=== PATIENT | female | born 1960 | race Caucasian/White ===

== ENCOUNTER 2018-04-10 14:06 | Observation (INO) ==
[2018-04-10] MEDS ORDERED: Sod Chloride 0.9% Inj 1,000 ML IV.SIG ONE (14:34)
--- NOTE | 2018-04-10 14:45 | ED ---
HPI General Chief Complaint: Chest Pain Stated Complaint: chest pain Time Seen by Provider: 04/10/18 14:19 Source: patient Mode of arrival: ambulatory Limitations: no limitations History of Present Illness HPI narrative: Patient is 57-year-old female with history of hyperlipidemia and breast cancer currently undergoing radiation treatment with Dr. Mccartney, presents the emergency room with complaints of chest pain. Patient reports that for the past 4 days, she has been having increased heart rate and palpitations. Patient reports that nothing seems to make the palpitations better or worse. Reports that the chest pain really began yesterday but was exacerbated by her radiation treatment. Patient reports that she feels a "pressure sensation to her left chest with associated nausea with no vomiting. She does have an appointment with Dr. Luu on but she called the [facility] Heart office and was told to go directly to the ER for re- evaluation. Patient denies any shortness of breath or symptoms. Chest pain is not pleuritic in nature. Complete Quality Measures for STEMI Alert Patients Related Data Allergies Allergy/AdvReac Type Severity Reaction Status Date / Time No Known Allergies Allergy Unverified 04/10/18 14:33 Review of Systems ROS: all other systems reviewed are negative [facility] Medical History Medical History Breast cancer (Acute) Hyperlipidemia (Acute) Left breast mass (Acute) Social History Social History Substance History: No History of Abuse Smoking Status: Unknown if ever smoked How Often Do You Have a Drink Containing Alcohol: Monthly or less Recent Travel in [facility] within the Last 8 Weeks: No Recent Out of Country Travel within the Last 8 Weeks: No Exam Narrative Exam Narrative: GENERAL: mild distress SKIN: Focused skin assessment warm/dry. HEAD: Atraumatic. Normocephalic. EYES: Pupils equal and round. No scleral icterus. No injection or drainage. ENT: No nasal bleeding or discharge. Mucous membranes pink and moist. NECK: Trachea midline. No JVD. CARDIOVASCULAR: Regular rate and rhythm. No murmur appreciated. RESPIRATORY: No accessory muscle use. Clear to auscultation. Breath sounds equal bilaterally. GASTROINTESTINAL: Abdomen soft, non-tender, nondistended. Hepatic and splenic margins not palpable. MUSCULOSKELETAL: No obvious deformities. No clubbing. No cyanosis. No edema. NEUROLOGICAL: Awake and alert. No obvious cranial nerve deficits. Motor grossly within normal limits. Normal speech. PSYCHIATRIC: Appropriate mood and affect; insight and judgment normal. Course Initial Documented Vital Signs Temperature 98.3 F 04/10/18 14:08 Pulse Rate 100 H 04/10/18 14:08 Respiratory Rate 18 04/10/18 14:08 Blood Pressure 126/59 L 04/10/18 14:08 Pulse Oximetry 97 04/10/18 14:08 Last Documented Vital Signs Temperature 98.3 F 04/10/18 14:08 Pulse Rate 86 04/10/18 16:12 Respiratory Rate 18 04/10/18 16:12 Blood Pressure 146/74 H 04/10/18 16:12 Pulse Oximetry 98 04/10/18 16:12 Medical Decision Making MDM Narrative Medical decision making narrative: During the course of the patients emergency department visit, the patients history, examination, and differential diagnosis were reviewed with the patient. The patient was placed on a child monitor with oximetry and frequent blood pressure monitoring. The patient had an IV access obtained and blood work sent for analysis. The patient was initially provided with aspirin The patients laboratory studies were reviewed, CT reviewed - incidental findings were reviewed with patient and a copy of her study was given to her as she will need to follow up on the lung nodules. Plan to admit to the chest pain unit over night for obs Medical Screen Exam Complete: Yes Emergency Medical Condition: Yes Differential Diagnosis Differential Diagnosis: ACS, arrhythmia, abnormal TSH, PE, electrolyte abnormality Medical Records Medical records reviewed: Yes I reviewed the patient's medical records. Lab Data Result diagrams: 04/10/18 14:35 04/10/18 14:35 Lab Results 04/10/18 04/10/18 04/10/18 Range/Units 14:35 14:35 14:35 WBC 5.2 (4.0-11.0) th/mm3 RBC 4.48 (4.00-5.30) mil/mm3 Hgb 13.4 (11.6-15.3) gm/dL Hct 40.9 (35.0-46.0) % MCV 91.3 (80.0-100.0) fL MCH 29.9 (27.0-34.0) pg MCHC 32.7 (32.0-36.0) % RDW 13.9 (11.6-17.2) % Plt Count 275 (150-450) th/mm3 MPV 7.9 (7.0-11.0) fL Neut % (Auto) 66.3 (16.0-70.0) % Lymph % (Auto) 23.5 (9.0-44.0) % [place] % (Auto) 8.4 H (0.0-8.0) % Eos % (Auto) 1.2 (0.0-4.0) % Baso % (Auto) 0.6 (0.0-2.0) % Neut # (Auto) 3.4 (1.8-7.7) th/mm3 Lymph # (Auto) 1.2 (1.0-4.8) th/mm3 [place] # (Auto) 0.4 (0.0-0.9) th/mm3 Eos # (Auto) 0.1 (0.0-0.4) th/mm3 Baso # (Auto) 0.0 (0.0-0.2) th/mm3 WBC Differential . Differential Comment Auto diff final PT 9.9 (9.8-11.6) sec INR 1.0 Ratio APTT 25.3 (24.3-30.1) sec Sodium 143 (136-145) meq/L Potassium 4.2 (3.5-5.1) meq/L Chloride 109 H (98-107) meq/L Carbon Dioxide 26.9 (21.0-32.0) meq/L Anion Gap 7 (5-15) meq/L BUN 15 (7-18) mg/dL Creatinine 0.86 (0.50-1.00) mg/dL Estimated GFR 68 L (>89) mL/min Random Glucose 98 (74-106) mg/dL Calcium 9.1 (8.5-10.1) mg/dL Magnesium 2.6 H (1.5-2.5) mg/dL Total Bilirubin 0.3 (0.2-1.0) mg/dL AST 37 (15-37) U/L ALT 33 (10-53) U/L Alkaline Phosphatase 99 (45-117) U/L Total Creatine Kinase 338 H (26-192) U/L CK-MB (CK-2) 3.6 (0.5-3.6) ng/mL CK-MB (CK-2) % 1.1 (0.0-4.0) % Troponin I Less than 0.02 L (0.02-0.05) ng/mL B-Natriuretic Peptide (0-100) pg/mL Total Protein 7.1 (6.4-8.2) g/dL Albumin 3.9 (3.4-5.0) g/dL Lipase 156 (73-393) U/L TSH (0.358-3.740) uIU/mL 04/10/18 04/10/18 Range/Units 14:35 14:35 WBC (4.0-11.0) th/mm3 RBC (4.00-5.30) mil/mm3 Hgb (11.6-15.3) gm/dL Hct (35.0-46.0) % MCV (80.0-100.0) fL MCH (27.0-34.0) pg MCHC (32.0-36.0) % RDW (11.6-17.2) % Plt Count (150-450) th/mm3 MPV (7.0-11.0) fL Neut % (Auto) (16.0-70.0) % Lymph % (Auto) (9.0-44.0) % [place] % (Auto) (0.0-8.0) % Eos % (Auto) (0.0-4.0) % Baso % (Auto) (0.0-2.0) % Neut # (Auto) (1.8-7.7) th/mm3 Lymph # (Auto) (1.0-4.8) th/mm3 [place] # (Auto) (0.0-0.9) th/mm3 Eos # (Auto) (0.0-0.4) th/mm3 Baso # (Auto) (0.0-0.2) th/mm3 WBC Differential Differential Comment PT (9.8-11.6) sec INR Ratio APTT (24.3-30.1) sec Sodium (136-145) meq/L Potassium (3.5-5.1) meq/L Chloride (98-107) meq/L Carbon Dioxide (21.0-32.0) meq/L Anion Gap (5-15) meq/L BUN (7-18) mg/dL Creatinine (0.50-1.00) mg/dL Estimated GFR (>89) mL/min Random Glucose (74-106) mg/dL Calcium (8.5-10.1) mg/dL Magnesium (1.5-2.5) mg/dL Total Bilirubin (0.2-1.0) mg/dL AST (15-37) U/L ALT (10-53) U/L Alkaline Phosphatase (45-117) U/L Total Creatine Kinase (26-192) U/L CK-MB (CK-2) (0.5-3.6) ng/mL CK-MB (CK-2) % (0.0-4.0) % Troponin I (0.02-0.05) ng/mL B-Natriuretic Peptide 8 (0-100) pg/mL Total Protein (6.4-8.2) g/dL Albumin (3.4-5.0) g/dL Lipase (73-393) U/L TSH 1.100 (0.358-3.740) uIU/mL Imaging Data Radiologist's impression: Chest CTA 04/10/18 14:34 CONCLUSION: 1. No CT evidence for pulmonary artery embolism as questioned. 2. 3 separate nodules in the right lower lobe ranging from 4 to 5 mm in size. There are additional densely calcified granulomas in the right lung with calcified right hilar nodes consistent with prior granulomatous disease. Sub-6 mm nodules do not require routine follow-up based on [address] examination may be performed in 6-12 months given patient's history of breast carcinoma. Chest X-Ray 04/10/18 14:34 CONCLUSION: Negative examination. ECG Data EKG Prior to Arrival: No Attestation: I personally reviewed and interpreted this ECG as follows: Interpretation: EKG at 1428: NSR at 88bpm, qt/qtc: 351/397, no acute st or t wave changes Discharge Plan Discharge Disposition Patient Disposition: 30 Still Patient Discharge Condition Condition: Stable Discharge Details Diagnosis: Chest pain, Incidental pulmonary nodule, > 3mm and < 8mm Physicians Team ED Provider: Brigid Valdivia Primary Care Provider: Fiorella Bae Discharge Instructions Patient Printed Instructions: Chest Pain (ED) Status ED Status: With Doctor
--- NOTE | 2018-04-10 15:05 | XR ---
EXAM DATE: 04/10/2018 2:48 PM EDT AGE/SEX: 57 years / Female INDICATIONS: Chest pain today. CLINICAL DATA: This is the patient's initial encounter. Patient reports that signs and symptoms have been present for 1 day and indicates a pain score of 5/10. MEDICAL/SURGICAL HISTORY: Carcinoma, breast. . Lumpectomy. COMPARISON: POI, XR CHEST PA AND LAT, 05/08/2015. . FINDINGS: A single AP view of the chest demonstrates the lungs to be symmetrically aerated without evidence of mass, infiltrate or effusion. The cardiomediastinal contours are unremarkable. Osseous structures a re intact. CONCLUSION: Negative examination. Electronically signed by: Juan Carlos Jaimes MD 04/10/2018 3:04 PM EDT
[2018-04-10 15:20] LABS: Baso % (Auto) 0.6 % (0.0-2.0); Eos # (Auto) 0.1 th/mm3 (0.0-0.4); Eos % (Auto) 1.2 % (0.0-4.0); Hematocrit 40.9 % (35.0-46.0); Hemoglobin 13.4 gm/dL (11.6-15.3); Lymph # (Auto) 1.2 th/mm3 (1.0-4.8); Lymph % (Auto) 23.5 % (9.0-44.0); Mean Corpuscular HGB Conc 32.7 % (32.0-36.0); Mean Corpuscular Hemoglobin 29.9 pg (27.0-34.0); Mean Corpuscular Volume 91.3 fL (80.0-100.0); Mean Platelet Volume 7.9 fL (7.0-11.0); Mono # (Auto) 0.4 th/mm3 (0.0-0.9); Mono % (Auto) 8.4 % (0.0-8.0); Neut # (Auto) 3.4 th/mm3 (1.8-7.7); Neut % (Auto) 66.3 % (16.0-70.0); Platelet Count 275 th/mm3 (150-450); Red Blood Count 4.48 mil/mm3 (4.00-5.30); Red Cell Distribution Width 13.9 % (11.6-17.2); White Blood Count 5.2 th/mm3 (4.0-11.0)
[2018-04-10 15:28] LABS: Activated Partial Thrombo Time 25.3 sec (24.3-30.1); Prothrombin Time 9.9 sec (9.8-11.6)
[2018-04-10 15:53] LABS: Alanine Aminotransferase 33 U/L (10-53); Albumin 3.9 g/dL (3.4-5.0); Alkaline Phosphatase 99 U/L (45-117); Anion Gap 7 meq/L (5-15); Aspartate Aminotransferase 37 U/L (15-37); Blood Urea Nitrogen 15 mg/dL (7-18); Calcium 9.1 mg/dL (8.5-10.1); Carbon Dioxide 26.9 meq/L (21.0-32.0); Chloride 109 meq/L (98-107); Creatine Kinase 338 U/L (26-192); Glomerular Filtration Rate 68 mL/min (>89); Glucose,Random 98 mg/dL (74-106); Lipase 156 U/L (73-393); Magnesium 2.6 mg/dL (1.5-2.5); Sodium 143 meq/L (136-145); Total Protein 7.1 g/dL (6.4-8.2)
[2018-04-10 15:54] LABS: Potassium 4.2 meq/L (3.5-5.1)
[2018-04-10 16:07] LABS: CKMB Percent 1.1 % (0.0-4.0); Creatine Kinase MB 3.6 ng/mL (0.5-3.6)
--- NOTE | 2018-04-10 16:49 | CT ---
EXAM DATE: 04/10/2018 4:37 PM EDT AGE/SEX: 57 years / Female INDICATIONS: Left side chest pain starting today CLINICAL DATA: This is the patient's initial encounter. Patient reports that signs and symptoms have been present for 1 day and indicates a pain score of 5/10. MEDICAL/SURGICAL HISTORY: Carcinoma, breast. None. RADIATION DOSE: 9.97 CTDI (mGy) COMPARISON: C, CHEST 1V SINGLE AP, 04/10/2018. . TECHNIQUE: Volumetric scanning was performed using a multi-row detector CT scanner during bolus infu manoj of 75 ml Omnipaque 350 (iohexol) nonionic water-soluble contrast as a single exam dose. The edith a was post processed with a variety of visualization algorithms including full volume maximum intensi ty projection and sliding thin slab reformation. Using automated exposure control and adjustment of the mA and/or kV according to patient size, radiation dose was kept as low as reasonably achievable t o obtain optimal diagnostic quality images. DICOM format image data is available electronically for review and comparison. FINDINGS: Pulmonary Arteries: No filling defects are seen in the pulmonary arteries through the segmental vess els. The main pulmonary artery is normal in diameter. Lung: Densely calcified granuloma in the right upper lobe. 5 mm nodule in the superior segment of th e right lower lobe. There are also 2 adjacent subpleural 4 mm nodules slightly more inferiorly in the right lower lobe. Minimal ground glass opacities in the inferior lingula and lung bases likely refle cting volume loss. Pleura: No effusion, significant pleural thickening or pneumothorax. Mediastinum: Heart is unremarkable without pericardial effusion. Densely calcified right hilar nodes .. Osseous Structures: No abnormal focal lytic or blastic bony lesions. Other: Visulaized upper abdomen is unremarkable. CONCLUSION: 1. No CT evidence for pulmonary artery embolism as questioned. 2. 3 separate nodules in the right lower lobe ranging from 4 to 5 mm in size. There are additional d ensely calcified granulomas in the right lung with calcified right hilar nodes consistent with prior granulomatous disease. Sub-6 mm nodules do not require routine follow-up based on [address] Optional CT examination may be performed in 6-12 months given patient's history of breast carc inoma. Electronically signed by: Isra Kim MD 04/10/2018 4:48 PM EDT
[2018-04-10 18:54] LABS: Creatine Kinase 129 U/L (26-192)
[2018-04-10 19:07] LABS: Creatine Kinase MB 0.7 ng/mL (0.5-3.6)
--- NOTE | 2018-04-10 21:00 | ECG ---
Date Performed: 04/10/2018 Time Performed: 14:28:41 PTAGE: 57 years EKG: Sinus rhythm NORMAL ECG NO PREVIOUS TRACING DOCTOR: Esequiel Kelley Interpretating Date/Time 04/10/2018 20:58:54
[2018-04-11 08:51] VITALS: RESP 16; O2SAT 96
--- NOTE | 2018-04-11 09:19 | P.HPCA ---
History of Present Illness Primary Care Physician: Fiorella Bae DO Chief Complaint: Chest pain and palpitations History of Present Illness: This is a 57-year-old female that has history of breast cancer status post lumpectomy in 2 weeks of radiation therapy with most recent being Monday that presents to ED with plan of chest discomfort and palpitations. Patient states her palpitations feel like as if her heart rate picks up. Is not a sudden onset but will gradual progression. It is been intermittently however for the last 4 days. She is also had chest discomfort radiates to her neck that began yesterday and was also intermittent. Pain was a 5 out of 10. Lasted about an hour. Was little nauseous but denies shortness of breath and diaphoresis. She has seen a station engineer main line in the past. States she saw Dr. Luu couple years ago really cannot recall the reasoning but states she had a stress test and a Holter monitor that was okay. She has an appointment to see Dr. Luu tomorrow to discuss her symptoms however she was advised by her oncologist yesterday to seek treatment in the ED. Non-smoker. There is family history of CAD. - Diagnosis (1) Chest pain (2) Palpitations (3) Multiple lung nodules on CT Review of Systems General: Patient denies fevers, chills, and recent travel. HEENT: Patient denies headache, sore throat, difficulty swallowing. Cardiovascular: Has sensation of heart rate increasing, states it occurred while in ED and she looked at the monitor and heart rate was in the high 80s. Has the chest discomfort as mentioned above. Denies sensation of heart beating irregularly. No syncope. Denies diaphoresis. Respiratory: Denies shortness of breath or inspirational chest discomfort. Denies coughing wheezing or hemoptysis. GI: She was nauseous yesterday. Patient denies vomiting, diarrhea, abdominal pain, bloody stools. Musculoskeletal: Patient denies joint pain or edema. Denies calf pain or edema. Neurovascular: Patient denies numbness, tingling, weakness in extremities. Denies headache. Endocrine: Denies polyuria and polydipsia. Hematologic: Denies easy bruising. Skin: Denies rash or itching. PMFSH - History History Provided By: Patient - Medical History Medical History: Medical History (Last Updated 04/10/18 @ 14:46 by Brigid Valdivia) Breast cancer Hyperlipidemia Left breast mass - Tobacco History Second Hand Smoke Exposure: No Tobacco Use In Past 30 Days: No Smoking Status: Never smoker Tobacco Type: Cigarettes - Alcohol History How Often Do You Have a Drink Containing Alcohol: Never - Substance Use History Substance History: No History of Abuse - Travel History Recent Travel in the [place] Within the Last 8 Weeks: No Recent Travel Out of the Country Within the Last 8 Weeks: No - Immunization History Tetanus Immunization: >5 Years Hx Influenza Vaccine This Season: No Medications and Allergies Active Medications: Active Medications Sodium Chloride (Ns Flush) 2 ml IV.FLUSH UNSCH PRN PRN Reason: FLUSH AFTER USING IV ACCESS Sodium Chloride (Ns Flush) 2 ml IV.FLUSH BID TIMOTEO Last Admin: 04/11/18 08:20 Dose: 2 ml Allergies Allergy/AdvReac Type Severity Reaction Status Date / Time No Known Allergies Allergy Unverified 04/10/18 14:33 Home Medications Medication Instructions Recorded Confirmed Type Calcium 500 500 mg DAILY 04/10/18 04/10/18 History magnesium 200 mg PO DAILY 04/10/18 04/10/18 History omega 0-xel-wog-fish oil [Fish Oil] 1,000 mg DAILY 04/10/18 04/10/18 History Exam Vital signs: Vital Signs 04/10/18 14:08 04/10/18 14:12 04/10/18 16:12 Temperature 98.3 F Pulse Rate 100 H 94 H 86 Respiratory Rate 18 20 18 Blood Pressure 126/59 L 146/74 H Pulse Oximetry 97 98 98 04/10/18 20:37 04/10/18 21:24 04/11/18 00:00 Temperature 98.9 F 98.1 F Pulse Rate 83 83 87 Respiratory Rate 17 18 21 Blood Pressure 130/68 133/71 128/67 Pulse Oximetry 95 94 L 04/11/18 03:29 04/11/18 08:00 04/11/18 08:02 Temperature 98.1 F 98.0 F Pulse Rate 75 77 84 Respiratory Rate 22 16 Blood Pressure 132/67 132/63 Pulse Oximetry 94 L 96 Intake & Output 04/10/18 04/11/18 04/11/18 18:59 06:59 18:59 Intake Total 1120 / 1120 Balance 1120 / 1120 Weight 68.946 kg 68.946 kg Intake: IV 1000 / 1000 Oral 120 / 120 Other: # Voids 1 Narrative: GENERAL: This is a well-nourished, well-developed patient, in no apparent distress. Patient speaks in clear complete sentences. Patient is pleasant. HEENT: Head is atraumatic and normocephalic. Neck is supple without lymphadenopathy and trachea is midline. No JVD or carotid bruits. CARDIOVASCULAR: Regular rate and rhythm without murmurs, gallops, or rubs. RESPIRATORY: Clear to auscultation. Breath sounds equal bilaterally. No wheezes , rales, or rhonchi. Chest wall is nontender. No use of accessory muscles. GASTROINTESTINAL: Abdomen is nontender, nondistended. Abdomen soft. No obvious pulsatile mass or bruit. No CVA tenderness. Strong femoral pulses bilaterally. Normal bowel sounds in all quadrants. MUSCULOSKELETAL: Patient is moving upper and lower extremities freely. No calf tenderness or edema, no Homans sign. Strong pulses in upper and lower extremities. NEUROLOGICAL: Patient is alert and oriented. Cranial nerves 2-12 are grossly intact. No focal deficits and speech is clear. SKIN: No rash and turgor is normal. Results 04/10/18 14:35 04/10/18 14:35 Cardiac Enzymes 04/10/18 04/10/18 04/10/18 Range/Units 14:35 14:35 18:00 AST 37 (15-37) U/L CK-MB (CK-2) 3.6 0.7 (0.5-3.6) ng/mL Troponin I Less than 0.02 L Less than 0.02 L (0.02-0.05) ng/mL B-Natriuretic Peptide 8 (0-100) pg/mL Coagulation 04/10/18 04/10/18 Range/Units 14:35 14:35 PT 9.9 (9.8-11.6) sec APTT 25.3 (24.3-30.1) sec B-Natriuretic Peptide 8 (0-100) pg/mL CBC 04/10/18 Range/Units 14:35 WBC 5.2 (4.0-11.0) th/mm3 RBC 4.48 (4.00-5.30) mil/mm3 Hgb 13.4 (11.6-15.3) gm/dL Hct 40.9 (35.0-46.0) % Plt Count 275 (150-450) th/mm3 Neut # (Auto) 3.4 (1.8-7.7) th/mm3 Lymph # (Auto) 1.2 (1.0-4.8) th/mm3 [place] # (Auto) 0.4 (0.0-0.9) th/mm3 Eos # (Auto) 0.1 (0.0-0.4) th/mm3 Baso # (Auto) 0.0 (0.0-0.2) th/mm3 Comprehensive Metabolic Panel 04/10/18 Range/Units 14:35 Sodium 143 (136-145) meq/L Potassium 4.2 (3.5-5.1) meq/L Chloride 109 H (98-107) meq/L Carbon Dioxide 26.9 (21.0-32.0) meq/L BUN 15 (7-18) mg/dL Creatinine 0.86 (0.50-1.00) mg/dL Calcium 9.1 (8.5-10.1) mg/dL AST 37 (15-37) U/L ALT 33 (10-53) U/L Alkaline Phosphatase 99 (45-117) U/L Total Protein 7.1 (6.4-8.2) g/dL Albumin 3.9 (3.4-5.0) g/dL Intake and Output 04/10/18 04/11/18 04/11/18 22:59 06:59 14:59 Intake Total 1120 / 1120 Balance 1120 / 1120 Intake: IV 1000 / 1000 Oral 120 / 120 Other: # Voids 1 Weight 68.946 kg EKG interpretations - EKG EKG shows: sinus rhythm (EKGs are sinus rhythm without significant ST segment depressions or elevations.) Caprini VTE Risk Assessment Caprini VTE Risk Assessment: Moderate/High Risk (score >= 2) Caprini Risk Assessment Model: Point Value = 1 Point Value = 2 Point Value = 3 Point Value = 5 Age 41-60 Minor surgery BMI > 25 kg/m2 Swollen legs Varicose veins or History of unexplained or recurrent spontaneous Oral contraceptives or hormone replacement Sepsis (< 1 month) Serious lung disease, including pneumonia (< 1 month) Abnormal pulmonary function Acute myocardial infarction Congestive heart failure (< 1 month) History of inflammatory bowel disease Medical patient at bed rest Age 61-74 Arthroscopic surgery Major open surgery (> 45 min) Laparoscopic surgery (> 45 min) Malignancy Confined to bed (> 72 hours) Immobilizing plaster cast Central venous access Age >= 75 History of VTE Family history of VTE Factor V Leiden Prothrombin [id number] Lupus anticoagulant Anticardiolipin antibodies Elevated serum homocysteine Heparin-induced thrombocytopenia Other congenital or acquired thrombophilia Stroke (< 1 month) Elective arthroplasty Hip, pelvis, or leg fracture Acute spinal cord injury (< 1 month) Prophylaxis Regimen: Total Risk Factor Score Risk Level Prophylaxis Regimen 0-1 Low Early ambulation 2 Moderate Order ONE of the following: *Sequential Compression Device (SCD) *Heparin 5000 units SQ BID 3-4 Higher Order ONE of the following medications: *Heparin 5000 units SQ TID *Enoxaparin/Lovenox 40 mg SQ daily (WT < 150 kg, CrCl > 30 mL/min) *Enoxaparin/Lovenox 30 mg SQ daily (WT < 150 kg, CrCl > 10-29 mL/min) *Enoxaparin/Lovenox 30 mg SQ BID (WT < 150 kg, CrCl > 30 mL/min) AND/OR *Sequential Compression Device (SCD) 5 or more Highest Order ONE of the following medications: *Heparin 5000 units SQ TID (Preferred with Epidurals) *Enoxaparin/Lovenox 40 mg SQ daily (WT < 150 kg, CrCl > 30 mL/min) *Enoxaparin/Lovenox 30 mg SQ daily (WT < 150 kg, CrCl > 10-29 mL/min) *Enoxaparin/Lovenox 30 mg SQ BID (WT < 150 kg, CrCl > 30 mL/min) AND *Sequential Compression Device (SCD) Assessment and Plan - Assessment (1) Chest pain Code(s): R07.9 - Chest pain, unspecified Status: Acute (2) Palpitations Code(s): R00.2 - Palpitations Status: Acute (3) Multiple lung nodules on CT Code(s): R91.8 - Other nonspecific abnormal finding of lung field Status: Acute - Plan * Chest pain: Patient has had serial cardiac enzymes and EKGs for ruling out purposes. She was seen by Dr. Kevin Allen of cardiology and chest pain center. She will undergo a Lexiscan. She will be discharged home if her stress test is nonischemic with instructions to follow-up with PCP and to keep her appointment with her station engineer main line tomorrow to have an outpatient Holter monitor set up. Return to ED for interval issues. * Palpitations: Continue to monitor. On telemetry in the chest pain center, patient's highest heart rate was sinus tachycardia with a rate of 114 and that was for couple seconds. Follow up with Dr. Luu and have a Holter monitor placed. * Lung nodules: Patient should have repeat CT of the chest in 6 months to further evaluate her lung nodules. Discussed with her PCP. Patient stable at this time. She is agreeable to this plan. H&P: Quality - VTE Deep Vein Thrombosis/Pulmonary Embolism Present on Admission: No
--- NOTE | 2018-04-11 11:31 | ECG ---
Date Performed: 04/11/2018 Time Performed: 03:22:12 PTAGE: 57 years EKG: Sinus rhythm NORMAL ECG NO PREVIOUS TRACING DOCTOR: Kevin Allen Interpretating Date/Time 04/11/2018 11:29:03
--- NOTE | 2018-04-11 11:32 | ECG ---
Date Performed: 04/10/2018 Time Performed: 22:48:06 PTAGE: 57 years EKG: Sinus rhythm NORMAL ECG PREVIOUS TRACING : 04/10/2018 14.28 Since previous tracing, no significant change noted DOCTOR: Kevin Allen Interpretating Date/Time 04/11/2018 11:29:59
[2018-04-11] MEDS ORDERED: Regadenoson Inj 0.4 MG/5 ML Syringe IV.PUSH ONE (11:48)
[2018-04-11 13:04] VITALS: BP 126/63; PULSE 106; TEMP 98.5
--- NOTE | 2018-04-11 14:45 | NM ---
EXAM DATE: 04/11/2018 1:11 PM EDT AGE/SEX: 57 years / Female INDICATIONS:Angina. . Chest pain. CLINICAL DATA: This is the patient's initial encounter. Patient reports that signs and symptoms have been present for 1 day and indicates a pain score of 0/10. MEDICAL/SURGICAL HISTORY: Carcinoma, breast. None. COMPARISON: No prior exams available for comparison. DOSE: 8.5 mCi Tc 99m Myoview at rest 26.2 mCi [id number] at stress 0.4 mg Lexiscan STRESS SYMPTOMS: Nausea. EJECTION FRACTION: >70 % TECHNIQUE: The patient underwent pharmacologic stress with infusion of prescribed dose. Continuous ECG tracing was monitored during stress. Gated SPECT imaging was performed after stress and conventi onal SPECT imaging was performed at rest. The examination was performed on a SPECT/CT scanner, both attenuation and non-corrected datasets were reviewed. FINDINGS: Distribution: The maximum perfused segment at stress is in the septal wall. Perfusion Study: The pattern of perfusion at stress is within normal limits. Gated Study: There are intact wall motion and wall thickening without hypokinetic or dyskinetic segm ents. The ejection fraction is calculated at >70%. RISK CATEGORY: Low (<1% Annual Motality Rate) CONCLUSION: Negative examination. Electronically signed by: Juan Carlos Jaimes MD 04/11/2018 2:44 PM EDT
== END 2018-04-11 16:11 | disposition home or self-care (01) ==
LOC: NEPC 14:06 → NEDA 14:06 → NEPFCDU 14:06 → NEDA 20:39 → NEPFCDU 20:43
PROVIDERS: ADMIT Internal Medicine Interventional Cardiology; ATTEND Internal Medicine Interventional Cardiology